=== PATIENT | male | born 1985 ===

== ENCOUNTER 2018-01-24 03:10 | Inpatient (IN) ==
[2018-01-24] MEDS ORDERED: ONDANSETRON 4 MG/2 ML VIAL IV STA (04:44)
[2018-01-24] MEDS ORDERED: MORPHINE 2 MG/1 ML SYRINGE IV STA (04:44)
[2018-01-24] MEDS ORDERED: ONDANSETRON 4 MG/2 ML VIAL IV PRN (04:52)
[2018-01-24] MEDS ORDERED: ACETAMINOPHEN 325 MG TABLET PO PRN (04:52)
[2018-01-24] MEDS ORDERED: KETOROLAC 15 MG/1 ML VIAL IV PRN (04:52)
[2018-01-24] MEDS ORDERED: MORPHINE 2 MG/1 ML SYRINGE ONE (06:34)
[2018-01-24] MEDS ORDERED: ONDANSETRON 4 MG/2 ML VIAL ONE ×2 (06:34→11:35)
[2018-01-24] MEDS ORDERED: LACTATED RINGERS 1,000 ML IV ONE (07:19)
[2018-01-24] MEDS ORDERED: INFLUENZA VIRUS VACCINE 0.5 ML SYRINGE IM ONE (07:45)
[2018-01-24 07:50] LABS: Basophils % 0.3 % (0.0-0.8); Eosinophils # 0.1 10*3/uL (0.0-0.87); Eosinophils % 0.5 % (0.00-10.9); Hematocrit 40.1 VOL% (42.0-52.0); Hemoglobin 14.2 GM/DL (14.0-18.0); Immature Granulocytes % 0.9 %; Lymphocytes # 1.7 10*3/uL (1.4-4.0); Lymphocytes % 15.6 % (21.2-54.2); Mean Corpuscular HGB Conc 35.4 GM/DL (32-36); Mean Corpuscular Hemoglobin 31 PG (27-34); Mean Corpuscular Volume 86.8 FL (87-102); Mean Platelet Volume 11.7 FL (9.6-12.0); Monocytes # 1.1 10*3/uL (0.11-0.8); Monocytes % 9.8 % (1.7-12.7); Neutrophils # 7.9 10*3/uL (1.4-7.4); Neutrophils % 72.9 % (38.7-73.9); Platelet Count 160 T/CUMM (130-400); Red Blood Count 4.62 MC/CUMM (3.8-5.5); Red Cell Distribution Width 13.2 % (9.3-17.3); White Blood Count 10.8 T/CUMM (4-12)
[2018-01-24] MEDS: DEXTROSE 5% LACTATED RINGERS 1,000 ML IV SCH ×3 (07:51→21:40)
[2018-01-24] MEDS ORDERED: POTASSIUM CHLORIDE RIDER 10 MEQ in PREMIX 1 EACH IV PRN (08:04)
[2018-01-24 08:05] LABS: Calcium 8.2 MG/DL (8.5-10.1); Osmolality,Calculated 282.1 MOS/KG (273-304); Potassium 3.4 MMOL/L (3.5-5.1)
[2018-01-24] MEDS ORDERED: ROPIVACAINE 0.5% 30 ML VIAL ONE ×2 (09:01→09:43)
[2018-01-24] MEDS ORDERED: PANTOPRAZOLE 40 MG TABLET PO ONE (09:22)
[2018-01-24] MEDS: PANTOPRAZOLE 40 MG TABLET PO SCH (09:46)
[2018-01-24] MEDS ORDERED: CLINDAMYCIN INJ 50 ML IV ONE (10:34)
[2018-01-24] MEDS ORDERED: BACITRACIN OINT 0.9 GM PACK TOP ONE (11:05)
[2018-01-24] MEDS ORDERED: MAGNESIUM HYDROXIDE SUSP 30 ML UDCUP PO PRN (11:32)
[2018-01-24] MEDS ORDERED: MORPHINE 2 MG/1 ML SYRINGE IV PRN (11:32)
[2018-01-24] MEDS ORDERED: PROPOFOL 200 MG/20 ML VIAL IV ONE (11:34)
[2018-01-24] MEDS ORDERED: MIDAZOLAM 2 MG/2 ML VIAL ONE (11:35)
[2018-01-24] MEDS ORDERED: fentaNYL 100 MCG/2 ML VIAL ONE (11:35)
[2018-01-24] MEDS ORDERED: SEVOFLURANE 1 UNIT/15 MINUTE INH ONE (11:35)
[2018-01-24] MEDS ORDERED: ACETAMINOPHEN 1,000 MG/100 ML VIAL IV ONE (11:36)
[2018-01-24] MEDS: CLINDAMYCIN INJ 900 MG in PREMIX 1 EACH IV SCH (17:15)
[2018-01-24] MEDS: POTASSIUM CHLORIDE 20 MEQ TABLET PO PRN (18:13)
[2018-01-25] MEDS: MORPHINE 2 MG/1 ML SYRINGE IV PRN ×2 (00:08→08:35)
[2018-01-25] MEDS: CLINDAMYCIN INJ 900 MG in PREMIX 1 EACH IV SCH (01:44)
[2018-01-25 03:32] LABS: Basophils % 0.2 % (0.0-0.8); Eosinophils % 0.1 % (0.00-10.9); Hematocrit 38.5 VOL% (42.0-52.0); Hemoglobin 13.3 GM/DL (14.0-18.0); Immature Granulocytes % 0.7 %; Immature Granulocytes Absolute 0.09 #; Lymphocytes # 1.1 10*3/uL (1.4-4.0); Lymphocytes % 8.7 % (21.2-54.2); Mean Corpuscular HGB Conc 34.5 GM/DL (32-36); Mean Corpuscular Hemoglobin 30 PG (27-34); Mean Corpuscular Volume 87.5 FL (87-102); Mean Platelet Volume 11.5 FL (9.6-12.0); Monocytes # 1.4 10*3/uL (0.11-0.8); Monocytes % 11.1 % (1.7-12.7); Neutrophils # 9.8 10*3/uL (1.4-7.4); Neutrophils % 79.2 % (38.7-73.9); Platelet Count 146 T/CUMM (130-400); Red Cell Distribution Width 13.2 % (9.3-17.3); White Blood Count 12.4 T/CUMM (4-12)
[2018-01-25 03:53] LABS: Albumin 3.2 G/DL (3.4-5.0); Bilirubin,Total 1.3 MG/DL (0.2-1.0); Calcium 7.8 MG/DL (8.5-10.1); Osmolality,Calculated 275.7 MOS/KG (273-304); Potassium 3.4 MMOL/L (3.5-5.1); Total Protein 5.8 G/DL (6.4-8.3)
[2018-01-25] MEDS: DEXTROSE 5% LACTATED RINGERS 1,000 ML IV SCH ×3 (06:05→21:01)
[2018-01-25] MEDS: POTASSIUM CHLORIDE 20 MEQ TABLET PO PRN ×3 (08:32→16:59)
[2018-01-25] MEDS: PANTOPRAZOLE 40 MG TABLET PO SCH (08:37)
[2018-01-26] MEDS: POTASSIUM CHLORIDE 20 MEQ TABLET PO PRN ×2 (01:19→03:24)
[2018-01-26] MEDS: DEXTROSE 5% LACTATED RINGERS 1,000 ML IV SCH ×3 (05:08→21:55)
[2018-01-26] MEDS: PANTOPRAZOLE 40 MG TABLET PO SCH (09:41)
[2018-01-27] MEDS: DEXTROSE 5% LACTATED RINGERS 1,000 ML IV SCH (06:02)
[2018-01-27] MEDS: PANTOPRAZOLE 40 MG TABLET PO SCH (09:21)
[2018-01-27 18:16] VITALS: BP 149/77
== END 2018-01-27 18:52 | disposition home or self-care (01) | DRG 493 ==
LOC: EDBD → EDUNIT# → N.ED 03:10 → N.EDINP 04:52 → N.3E 06:27
PROVIDERS: ADMIT Surgery; ATTEND Surgery